=== PATIENT | male | born 2000 | race Two or more races ===

== ENCOUNTER 2024-04-08 23:28 | Emergency (ER) | payer OTHER, SELFPAY ==
[2024-04-08 23:32] VITALS: BP 125/88
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
[2024-04-08] MEDS: MOTRIN 600 MG PO (23:54)
== END 2024-04-09 00:04 | disposition home or self-care (01) ==
LOC: EMR 23:28
PROVIDERS: EMERGENCY PHYSICIAN Emergency Medicine; FAMILY PHYSICIAN Family Medicine
DX: S39.012A Strain of muscle, fascia and tendon of lower back, initial encounter (principal); V49.40XA Driver injured in collision with unspecified motor vehicles in traffic accident, initial encounter; Y92.410 Unspecified street and highway as the place of occurrence of the external cause
CPT/HCPCS: 99283